=== PATIENT | male | born 1960 | race Caucasian/White ===

== ENCOUNTER → 2020-05-11 | Outpatient (CLI) | payer BC ==
[~2020-05-11] MED LIST: ACTOS15 MG PO; CALCIUM 600600 M2 PO; CELEXA40 MG PO; GLUCOPHAGE500 MG PO; GNC NIACIN 250250 MG PO; HYDRODIURIL25 MG PO; JANUVIA100 MG PO; KEFLEX500 MG PO; LAMISIL250 MG PO; METFORMIN1000 MG PO; NEURONTIN800 MG; PRINIVIL20 MG PO; REQUIP1 MG PO; ZYLOPRIM300 MG PO
== END | disposition home or self-care (01) ==
LOC: COVID19 09:35
PROVIDERS: ATTEND Internal Medicine
DX: Z20.828 Contact with and (suspected) exposure to other viral communicable diseases (principal)

== ENCOUNTER → 2020-05-23 | Outpatient (CLI) | payer BC | END | disposition home or self-care (01) | LOC: COVID19 11:45 | PROVIDERS: ATTEND Internal Medicine | DX: Z20.828 Contact with and (suspected) exposure to other viral communicable diseases (principal) ==

== ENCOUNTER 2023-10-16 20:47 | Emergency (ER) | payer BC ==
[~2023-10-16 20:47] MED LIST changes: +AMIODARONE HYD200 MG PO; +APRESOLINE25 MG PO; +ASPIRIN CHEWABL81 MG PO; +BUMETANIDE2 MG PO; +DOXYCYCLINE HY100 M3 PO; +ELIQUIS5 M1 PO; +ISORDIL10 M1 PO; +JARDIANCE10 MG PO; +LANTUS SOL100 UNIT/1 SC; +LASIX40 MG PO; +LIPITOR20 MG PO; +LISINOPRIL2.5 MG PO; +METOPROLOL SUCC25 M2 PO; +NICODERM CQ1 EAC1 TD; +NICODERM T; -PRINIVIL20 MG PO; +Synthroid,Levo25 MCG PO; +ZYLOPRIM100 MG PO; -ZYLOPRIM300 MG PO
[2023-10-17] MEDS ORDERED: EPINEPHrine Hydrochloride 1 MG/10 ML SYR IV ONE (15:26)
[2023-10-17] MEDS ORDERED: SODIUM BICARBONATE 50 MEQ/50 ML SYR IV ONE (15:26)
== END 2023-10-17 00:26 ==
LOC: ED 20:47
DX: I46.9 Cardiac arrest, cause unspecified (principal); F17.200 Nicotine dependence, unspecified, uncomplicated; Z79.899 Other long term (current) drug therapy; Z79.4 Long term (current) use of insulin; Z79.82 Long term (current) use of aspirin; Z90.49 Acquired absence of other specified parts of digestive tract; Z96.643 Presence of artificial hip joint, bilateral